=== PATIENT | male | born 1995 | race African-American/Black ===

== ENCOUNTER 2016-11-25 09:27 | Emergency (ER) | payer SELFPAY ==
[~2016-11-25] VITALS: Ht 175.3 cm; Wt 72.6 kg
[2016-11-25 09:58] VITALS: BP 115/66
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
== END 2016-11-25 10:51 | disposition home or self-care (01) ==
LOC: ER 09:27
DX: R05 Cough (principal); G89.29 Other chronic pain; M79.605 Pain in left leg; Z98.890 Other specified postprocedural states
CPT/HCPCS: 99281